=== PATIENT | male | born 1945 | race Caucasian/White ===

== ENCOUNTER → 2018-07-14 | Outpatient (CLI) | payer OTHER, MEDICAID | LOC: FIMAGING 06:37 | DX: M17.11 Unilateral primary osteoarthritis, right knee (principal); M22.41 Chondromalacia patellae, right knee; M25.461 Effusion, right knee; M47.816 Spondylosis without myelopathy or radiculopathy, lumbar region; M25.562 Pain in left knee; G89.29 Other chronic pain ==

== ENCOUNTER → 2018-08-10 | Outpatient (CLI) | payer OTHER, MEDICAID | LOC: FIMAGING 07:44 | DX: M41.86 Other forms of scoliosis, lumbar region (principal); M47.896 Other spondylosis, lumbar region; M48.061 Spinal stenosis, lumbar region without neurogenic claudication; M99.73 Connective tissue and disc stenosis of intervertebral foramina of lumbar region ==